=== PATIENT | male | born 1985 | race Caucasian/White ===

== ENCOUNTER 2020-06-22 17:41 | Emergency (ER) | payer MEDICAID ==
[2020-06-22 17:52] VITALS: BP 136/68; PULSE 68
[2020-06-22] MEDS ORDERED: Tetracaine HCl/PF 0.5% 4 ML Bottle EYERT ONE (18:03)
[2020-06-22] MEDS ORDERED: Diphtheria,Pertussis(Acell),Tetanus Vaccine 0.5 ML SDV IM ONE (18:03)
--- NOTE | 2020-06-22 18:14 | EDM.PDOC ---
ED HPI GENERAL MEDICAL PROBLEM - General Chief Complaint: Eye Problems Stated Complaint: OBJECT IN RIGHT EYE Time Seen by Provider: 06/22/20 18:04 Source of Information: Reports: Patient, Old Records History Limitations: Reports: No Limitations - History of Present Illness INITIAL COMMENTS - FREE TEXT/NARRATIVE: 35 yo male was grinding yesterday and got something in his R eye. He can see the FB adherent to the front of that eye. Vision is OK. Is more light sensitive. Tetanus not UTD. 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 Last episode aprox 3 to 5 years. Other Musculoskeletal History: colar bone and scapula fx Psychiatric History: Reports: ADD - Infectious Disease History Infectious Disease History: Reports: Chicken Pox - Past Surgical History HEENT Surgical History: Reports: Myringotomy w Tube(s) Social & Family History - Tobacco Use Smoking Status *Q: Current Some Day Smoker Years of Tobacco use: 10 Packs/Tins Daily: 0.1 ED ROS GENERAL - Review of Systems Review Of Systems: Comprehensive ROS is negative, except as noted in HPI. Constitutional: Reports: No Symptoms HEENT: Reports: Eye Pain, Other (eye watering) ED EXAM GENERAL W FULL EYE - Physical Exam Exam: See Below Exam Limited By: No Limitations General Appearance: Alert, WD/WN, No Apparent Distress Eye Exam: Right Eye: Conjunctival Injection, Foreign Body (over R cornea), Bilateral Eye: PERRL Eyelids: Bilateral: Normal Appearance Conjunctiva & Sclera: Bilateral: Normal Appearance Cornea Exam: Right: Foreign Body Extraocular Movements: Bilateral: Intact ED EYE w/ Add Procedure - Eye Procedure Alcaine Drops Administered: Yes (tetracaine) Eye FB Removal: Other (Algerbrush used for removal of metal FB and rust ring) Course - Vital Signs Last Recorded V/S: Last Vital Signs Temp 36.6 C 06/22/20 17:58 Pulse 68 06/22/20 17:58 Resp 16 06/22/20 17:58 BP 136/68 06/22/20 17:58 Pulse Ox 100 06/22/20 17:58 - Orders/Labs/Meds Orders: Active Orders 24 hr Category Date Time Status Vaccines to be Administered [RC] PER UNIT ROUTINE Care 06/22/20 18:03 Active Meds: Medications Discontinued Medications Generic Name Dose Route Start Last Admin Trade Name Freq PRN Reason Stop Dose Admin Diphtheria/Tetanus/Acell Pertussis 0.5 ml 06/22/20 18:03 Adacel IM 06/22/20 18:04 .ONCE ONE Tetracaine HCl 1 ml 06/22/20 18:03 Tetracaine 0.5% Steri-Unit Reema EYERT 06/22/20 18:04 ASDIRECTED ONE Departure - Departure Time of Disposition: 18:25 Disposition: Home, Self-Care 01 Condition: Fair Clinical Impression: Foreign body in cornea, right eye, initial encounter Clinical Impression: (Ruled Out): Foreign body of right eye - Discharge Information *PRESCRIPTION DRUG MONITORING PROGRAM REVIEWED*: No *COPY OF PRESCRIPTION DRUG MONITORING REPORT IN PATIENT ROSE: No Referrals: Mayur Ellis MD [Primary Care Provider] - Additional Instructions: No eye rubbing. Avoid bright lights. Apply antibiotics to your eye as directed f or 3 days. Take ibuprofen 600 mg every 6 hrs with food for pain relief. Add [place] for added relief. Return if not better by Tuesday evening as you may need additional rust removed. Sepsis Event Note (ED) - Evaluation Sepsis Screening Result: No Definite Risk - Focused Exam Vital Signs: Vital Signs Temp Pulse Resp BP Pulse Ox 06/22/20 17:58 36.6 C 68 16 136/68 100 06/22/20 17:51 36.6 C 68 16 136/68 100 - My Orders Last 24 Hours: My Active Orders 06/22/20 18:03 Vaccines to be Administered [RC] PER UNIT ROUTINE - Assessment/Plan Last 24 Hours: My Active Orders 06/22/20 18:03 Vaccines to be Administered [RC] PER UNIT ROUTINE
== END 2020-06-22 18:32 | disposition home or self-care (01) ==
LOC: JP.ED 17:41
DX: T15.01XA Foreign body in cornea, right eye, initial encounter (principal); F17.210 Nicotine dependence, cigarettes, uncomplicated; Z88.2 Allergy status to sulfonamides; Z23 Encounter for immunization
CPT/HCPCS: 65220; 90471; 90715; 99283-25